=== PATIENT | female | born 1945 | race Caucasian/White ===

== ENCOUNTER 2016-07-29 17:37 | Inpatient (IN) | payer MEDICARE, OTHER ==
[~2016-07-29] VITALS: Ht 167.6 cm; Wt 107.6 kg
--- NOTE | ~2016-07-29 | ECH ---
Transthoracic Echocardiography Report (TTE) Demographics Patient Name WESLEY ADAIR Date of Study 08/01/2016 Patient Number [id number] Visit Number [id number] Date of 1945 Room Number 418 Accession Number [id number] Gender Female Age 71 year(s) Referring Brenna Lowe Transition Teacher Pennie Coelho [facility] Physician Physician Demetris Antonio MD Vice President Industrial Relations Physician [place] Supervising Ordering Physician Brenna Lowe MD/MLP Nurse Stress Home Supervisor Conclusions Contractility Score Summary Normal Left Ventricular contractility was noted. Summary Technically fair exam. The estimated left ventricular ejection fraction is 55-60%. Severe concentric left ventricular hypertrophy. Diastolic assessment reveals Grade I diastolic dysfunction. Bubble study was done, there is no evidence for a PFO or ASD. No significant valvular abnormalities. Recommendation The patient will be given the results of this study by the physician who ordered the exam. Procedure Type of Study TTE procedure:Echo Complete SF. Procedure Date Date: 08/01/2016 Start: 11:44 AM Technical Quality: Fair due to body habitus. Indications:CVA. Appropriate Use Criteria: 9 Contrast Medium: Bubble Study. Height: 66 inches Weight: 235 pounds BSA: 2.14 m Rhythm: Sinus bradycardia HR: 52 bpm BP: 117/53 mmHg M-Mode/2D Measurements LV Diastolic Dimension: 4.33 cm LV Systolic Dimension: 3.16 cm LV Septum Diastolic: 1.69 cm LV PW Diastolic: 1.66 cm AO Root Dimension: 2.51 cm Cardiac Output: 5 l/min LA Dimension: 4.68 cm Cardiac Index: 2.34 l/min*m RV Diastolic Dimension: 3.31 cm LA volume index: 34 ml/m LVOT: 1.99 cm LVOT VTI: 30.93 cm RV Base: 4.1 cm LV Stroke volume: 96.15 ml RV Mid: 2.4 cm LV Stroke volume index: 44.93 ml/m Doppler Measurements AV Peak Velocity: 1.4 m/s MV Peak E-Wave: 1.17 m/s AV Peak Gradient: 7.84 mmHg MV Peak A-Wave: 1.14 m/s AV Mean Gradient: 3.68 mmHg MV E/A Ratio: 1.03 LVOT Peak Velocity: 1.24 m/s MV P1/2t: 73.5 msec AV Area (Continuity):3.53 cm MV Deceleration Time: 248.6 msec MV Area (PHT): 3 cm PV Peak Velocity: 0.72 m/s PV Peak Gradient: 2.04 mmHg RA Area: 15.16 cm Findings Left Ventricle The left ventricle is normal in size . Severe concentric left ventricular hypertrophy. Diastolic assessment reveals Grade I diastolic dysfunction. Right Ventricle Normal right ventricle structure and function. Left Atrium Normal left atrial size. Bubble study was done, there is no evidence for a PFO or ASD. Right Atrium Normal right atrial size. Mitral Valve Mild thickening of the mitral valve leaflets. Mild mitral annular calcification. Trivial mitral regurgitation by color Doppler. Aortic Valve The aortic valve was not well imaged. Tricuspid Valve Normal tricuspid valve structure and function. Pulmonic Valve Normal pulmonic valve structure and function. Pericardial Effusion No evidence of pericardial effusion. Miscellaneous Visualized portions of the aortic root and ascending aorta appear normal in size. Pleural Effusion No evidence of pleural effusion. Contractility Score LV regional wall motion:(0-Non visualized 1-Normal 2-Hypokinesis 3-Akinesis 4-Dyskinesis 5-Aneurysm) Signature
--- NOTE | 2016-07-31 14:30 | HP ---
ADMIT: 07/29/2016 RM/LOC: 418 [facility] MR#: [id number] [address] [address] WESLEY ADAIR [address] [place] [address] History and Physical SEX: F AGE: 71 : 1945 DATE OF SERVICE: CHIEF COMPLAINT: Headache with visual changes. CLINICAL HISTORY: The patient is a 70-year-old, morbidly obese, white female, who is admitted to [place] after being initially seen in our office and then sent for MRI of her head on an urgent basis. The patient has a history of cerebrovascular disease with a CVA in May of 2014 and a second stroke again in June of 2014. Following her second stroke, she was placed on baby aspirin and Plavix and has had no other acute cerebrovascular events until her admission today. The patient noted the onset of a fairly intense left-sided headache approximately 7 days ago on 07/21/2016. She had the onset in the afternoon of a dull headache that progressively got worse, On 07/22/2016, she noted the headache was persisting. She was not having any other focal neurologic symptoms just a persistent left-sided headache. She notes she is a person who usually does not get headaches and has no prior history of migraine or vascular headaches. Over the past weekend, she noted the onset of some visual changes, but she does have history of diabetic retinopathy and has had previous visual changes related to her diabetic retinopathy. She thought that her vision changes were possibly just related to her diabetic retinopathy; however, the visual changes persisted with a persistent visual field defect. She continued to have a headache. They contacted our office earlier in the week, but my schedule was full and they chose to not see any of my partners until they could see me on the afternoon of 07/29/2016. When seen in our office, she was complaining of this persistent headache with obvious visual field deficit. Given her history of cerebrovascular disease and prior stroke, she was sent to [place] for an urgent MRI of the head. MRI of her head done at [place] late on the afternoon of 07/29/2016, showed an acute stroke involving the left temporal and left occipital lobe. In view of this acute CVA and her persistent headache secondary to this stroke, it was felt best to admit for close monitoring of her neurologic status. It should be noted that she has had no other focal symptoms other than the visual field deficit. She has noted no change in balance, no change in coordination, no change in her muscle strength or functional ability of any of her extremities. Her only symptoms of the stroke have been the headache and visual field deficit. PAST MEDICAL HISTORY: RECENT HOSPITALIZATIONS: The patient was last hospitalized here at [place] in June of 2014. Following that admission, we did send her to the IRU for post CVA rehab. She had also been hospitalized in May of 2014 with a mini-stroke. Prior to that, she had been hospitalized in October of 2013 with urinary tract infection and urosepsis. She has had extensive urologic workup and treatment. She has a history of urethral cell bladder CA and has been followed by the Urology group with serial cystoscopies on an outpatient basis. She has also had transurethral resection of her bladder tumor on multiple occasions. Most recently, her cystoscopies have all been coming back negative for any evidence of residual urethral cell cancer. She was initially diagnosed with her bladder cancer in April of 2014. She has also done some intravesical chemotherapy for her ADMIT: 07/29/2016 RM/LOC: 418 [facility] MR#: [id number] [address] [id number] WESLEY ADAIR [address] [place] [address] History and Physical SEX: F AGE: 71 : 1945 bladder CA. Her chronic medical problems are noted to include: 1. COPD. 2. Hypertension. 3. Type 2 diabetes. 4. Hyperlipidemia. 5. Morbid obesity. 6. Generalized degenerative joint disease. 7. Severe lumbar spinal stenosis. 8. Depressive disorder, not otherwise specified. 9. Urethral cell cancer of the bladder. 10.Chronic GERD. 11.Cerebrovascular disease with history of prior strokes in May and June of 2014. She also had a previous mini-stroke in July of 2013. PREVIOUS SURGICAL PROCEDURES: Include an appendectomy, , multiple resections of her bladder tumor and multiple cystoscopies, a previous breast biopsy for benign disease. She also has an I and D of a right gluteal abscess in 2012. Her most recent surgical procedure was a right total knee arthroplasty done in [place] at [facility] by Dr. Obrien approximately a year and a half ago. CURRENT MEDICATIONS: Include: 1. Simvastatin 20 mg daily. 2. Metformin 500 mg b.i.d. 3. Lisinopril 20 mg daily. 4. Pepcid 20 mg at bedtime. 5. Vitamin D 2000 units daily. 6. Duloxetine 60 mg daily. 7. Plavix 75 mg daily. 8. PreserVision 2 caps daily. 9. Percocet 5/325, 1 every 4 hours for her chronic intractable back pain. 10.Toprol-XL 100 mg daily. 11.Hydrochlorothiazide 25 mg daily. 12.ASA 5 grains 1 daily. 13.Norvasc 10 mg daily. 14.Tricor 145 mg daily. 15.Travatan ophthalmic drops 1 drop both eyes at bedtime. 16.Vitamin E 400 mg daily. ALLERGIES: SHE IS SENSITIVE TO DIAL SOAP, ALSO HAS HAD PREVIOUS DIFFICULTY WITH HALLUCINATIONS FROM MORPHINE. FAMILY HISTORY: The patient's father of esophageal and stomach cancer. She notes her mother had Alzheimer dementia. There was a strong family history of diabetes. SOCIAL HISTORY: The patient is retired. She lives with her in their family home. She does not consume alcoholic beverages. She was a former ADMIT: 07/29/2016 RM/LOC: 418 [facility] MR#: [id number] [address] [place] [address] WESLEY ADAIR [address] [place] [address] History and Physical SEX: F AGE: 71 : 1945 smoker. She quit smoking in 2004, has about a 30 to 40-rcom-spyd history of smoking prior to quitting. The patient is quite limited in her functional activities because of her chronic intractable back pain. She has severe lumbar spinal stenosis with neurogenic claudication. REVIEW OF SYSTEMS: CONSTITUTIONAL: Has not felt well for the past week, has been having headaches with some nausea. Some occasional lightheadedness, but has been able to function fairly normally at home, but has been more fatigued and tired. HEENT: She has had new vision changes with some increased blurring of her vision. She also notes that when she looks at something she does not see the entire picture it is like a portion is missing out of the lower central portion of what she is looking at. She describes a significant visual field deficit. She notes no upper respiratory congestion and no nasal or sinus congestion. She denies any swallowing difficulty. No choking or signs of aspiration. PULMONARY: She does get short of breath with activity. History of COPD. She is having no significant sputum production. No hemoptysis. No pleuritic chest pain. CARDIAC: The patient has multiple cardiac risk factors. She does not have any known history of angina or cardiac related chest pain. She does have history of hypertension. Blood pressures have been well controlled. Also, note a history of obstructive sleep apnea. She is not utilizing her CPAP or oxygen at night. GASTROINTESTINAL: She has been having some nausea, has a history of chronic dyspepsia. Her chronic GERD symptoms are well controlled with her current medications. She has been quite constipated for the last 5 days. She has noted no blood in her stools. GENITOURINARY: History of hematuria. History of urethral cell bladder CA status post extended treatment. MUSCULOSKELETAL: Chronic intractable back pain. She is status post right total knee. She also is noted to have significant degenerative arthritis of the left knee and bilateral rotator cuff arthropathy of both shoulders. NEUROLOGIC: She has had some ongoing depression, but feels her medications are working well for that. She has history of the previous strokes on 3 occasions. She is noting no other new focal deficits. PHYSICAL EXAMINATION: VITAL SIGNS: Temp is 99.3, pulse is 64, respirations 14, blood pressure 133/64, and O2 saturation is 97% on room air. GENERAL: The patient is a 70-year-old, white female, who appears older than her stated age. She is in no acute distress. She is oriented to time and place. Memory appears to be intact. ENT: Her ears are clear. Hearing is intact. Pupils are equal reactive. Sclerae nonicteric. Conjunctivae noninflamed. Her extraocular movements are intact, but she notes a central lower visual field defect. Her oropharynx is normal. NECK: Supple. No carotid bruits. Carotid pulses are full and symmetrical. Thyroid not enlarged. ADMIT: 07/29/2016 RM/LOC: 418 [facility] MR#: [id number] [address] [place] [id number] WESLEY ADAIR [address] [place] [address] History and Physical SEX: F AGE: 71 : 1945 LUNGS: Today are noted to be diminished, but otherwise clear. HEART: Regular rhythm. No murmurs. No evidence of failure. ABDOMEN: Quite obese, protuberant, and nondistended. Bowel sounds are normoactive. I cannot appreciate any masses or organomegaly. BREAST AND PELVIC: Not performed at this time. EXTREMITIES: The patient has significant weakness in her legs particularly noted to have hip flexor weakness, has marked difficulty standing from a chair. She has a scar over her right knee from previous right total knee. Advanced degenerative changes of the left knee, changes of chronic venous insufficiency and stasis dermatitis in both lower extremities. INTEGUMENT: No other rashes other than for her stasis dermatitis of her legs. NEUROLOGICAL: I cannot appreciate any focal deficit. She has no meningeal signs. She has no nuchal rigidity. Her balance is poor. She is steady with use of a walker, but due to her lower extremity weakness, she has trouble ambulating without use of a walker. Upper extremity strength is normal and symmetric. Her MRI of the head done prior to admission shows changes of chronic cerebrovascular disease and with deep white matter changes due to small vessel disease in the left temporal and occipital lobes. The patient has findings consistent with an acute ischemic stroke. ASSESSMENT AT THE TIME OF ADMISSION: 1. Acute left temporal and occipital lobe cerebrovascular accident. 2. Cerebrovascular disease. 3. Type 2 diabetes. 4. Hyperlipidemia/hypertriglyceridemia. 5. Hypertension. 6. Chronic obstructive pulmonary disease. 7. Tobacco use disorder in full sustained remission. 8. Chronic gastroesophageal reflux disease. 9. Morbid obesity. 10.Lumbar spinal stenosis. ADMIT: 07/29/2016 RM/LOC: 418 [facility] MR#: [id number] [facility] [address] [address] WESLEY ADAIR [address] [place] [address] History and Physical SEX: F AGE: 71 : 1945 11.Neurogenic claudication. 12.Status post right total knee. 13.Urethral cell carcinoma of the bladder. PLAN: Plan is to admit the patient. Monitor her neurologic status closely. I feel that the stroke is at least 5 to 7 days of age. She is not a candidate for thrombolytic therapy, but do feel we need to monitor her neuro status closely for signs of progression or extension of her stroke and proceed with further post CVA evaluation to include PT, OT, and Speech Therapy. Would also like to get Neurology consult and get their recommendations regarding further management in particular with regard to stroke prevention. We are already attempting to manage her risk factors as best we can. Jaspal Ceja MD/ beck JOB #: [id number] CC: Jaspal Ceja, Attending Physician Jaspal Ceja, Family Physician
[2016-08-19] MEDS ORDERED: ZOCOR DPS20 MG PO (10:23)
[2016-08-19] MEDS ORDERED: PRESERVISION A1 EAC2 PO (10:24)
[2016-08-19] MEDS ORDERED: PLAVIX75 MG PO (10:24)
[2016-08-19] MEDS ORDERED: TOPROL XL50 MG PO (10:24)
[2016-08-19] MEDS ORDERED: NORVASC DPS10 MG PO (10:24)
[2016-08-19] MEDS ORDERED: TRICOR145 MG PO (10:24)
[2016-08-19] MEDS ORDERED: TRAVATAN2.5 ML OU (10:25)
[2016-08-19] MEDS ORDERED: VITAMIN D2000 UNI1 PO (10:25)
[2016-08-19] MEDS ORDERED: MAALOX DPS30 ML PO (10:26)
[2016-08-19] MEDS ORDERED: GLUCOPHAGE850 MG PO (10:26)
[2016-08-19] MEDS ORDERED: ZESTRIL DPS20 MG PO (10:26)
[2016-08-19] MEDS ORDERED: SENOKOT S1 TAB PO (10:26)
[2016-08-19] MEDS ORDERED: TYLENOL DPS325 MG PO (10:27)
[2016-08-19] MEDS ORDERED: CYMBALTA30 MG PO (10:27)
[2016-08-19] MEDS ORDERED: TINACTIN 1% PWD45 GM TP (10:27)
--- NOTE | 2016-09-02 19:22 | DS ---
ADMIT: 07/29/2016 RM/LOC: 418 [facility] MR#: [id number] [address] [address] JACQUELINE ADAIR [address] [place] [address] General Discharge Summary SEX: F AGE: 70 : 1945 ADMISSION DATE: 07/29/2016 DISCHARGE DATE: 08/03/2016 ADMITTING DIAGNOSIS: As per history and physical. FINAL DIAGNOSES: 1. Acute cerebrovascular accident. 2. Cerebrovascular disease. 3. Jeannie-infarct cerebral edema. 4. Post cerebrovascular accident headache. 5. Chronic kidney disease, stage 3. 6. Dysarthria and anarthria secondary to acute cerebrovascular accident. 7. Chronic obstructive pulmonary disease. 8. 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 9. Hypertension. 10.Hyperlipidemia. 11.Generalized osteoarthritis. 12.Constipation. 13.Morbid obesity. 14.Chronic venous insufficiency of the lower extremities. 15.Lumbar spinal stenosis. 16.Major depressive disorder. 17.Chronic gastroesophageal reflux disease/esophageal reflux. 18.Personal history of malignant neoplasm of the bladder. 19.Status post prior right total knee arthroplasty. 20.Tobacco use disorder in full sustained remission. COMPLICATIONS: None. OPERATIONS: None. CLINICAL HISTORY: Jacqueline is a 70-year-old, white female, admitted after being seen at our office complaining of severe headache and vision changes with visual field loss. The patient had been having headaches off and on for the past week with a left temporal headache, which started on 07/21/2016. Visual changes have been noted for the last 5 to 6 days, but have gotten significantly worse in the last 24 to 48 hours. The patient has had a persistent left-sided headache. She does have prior history of CVA in May of 2014. Because of her findings and MRI was done on an urgent basis, MRI showed an acute left temporal occipital lobe CVA. In view of her acute stroke, the patient was admitted for management of her acute stroke and monitoring of her neurologic status. For further details of her clinical history as well as her past medical history and pertinent findings on physical exam, please see dictated history and physical. LABORATORY AND X-RAY SUMMARY FROM THIS ADMISSION: For complete details of lab, please see cumulative laboratory summary included in her chart. Brief synopsis of lab; her initial CBC showed a white count of 8600, hemoglobin 10.2, and hematocrit 33.8. At discharge her white count was 6000, hemoglobin ADMIT: 07/29/2016 RM/LOC: 418 [facility] MR#: [id number] [address] [address] MANA JACQUELINE L [address] [place] [address] General Discharge Summary SEX: F AGE: 70 : 1945 8.5, and hematocrit 28.5. Coag studies on admission showed a protime of 11.4, INR 1.09. Her PTT was 24.5. On admission, her sodium was 142, potassium 4.3, BUN was 36 with a creatinine of 1.8. Blood sugar was 205. At discharge; sodium was 134, potassium 5.0, BUN 69, and creatinine 1.6. Her lipid studies showed a cholesterol of 158. She does have significant hypertriglyceridemia with triglycerides of 498. The patient's serum iron level was normal. Iron binding capacity was elevated. Fingerstick blood sugars were monitored q.i.d. throughout the hospitalization. Her blood sugars ranged from a low of 147 to a high of 218 during this hospitalization. The patient's B12 level was noted to be normal. Her folate level is normal. Serum ferritin was low normal at 23. Haptoglobin was normal at 148. Hemoglobin A1c is elevated at 8.4, consistent with poor diabetic control. Her TSH was normal at 1.85. Her serum proteins were normal with normal protein electrophoresis. A CTA of her head and neck was obtained that showed tortuous internal carotid arteries. She had some degree of atherosclerotic disease of both carotids, but no significant stenosis or obstruction. A CT of her head was obtained on 07/31/2016, because of persistent headache and worsening of her dysarthria. This showed an evolving infarct on the left with no significant change from her recent MRI. MRI of her brain done on admission showed changes of small vessel disease, and atherosclerotic change. She was found to have a left temporal and occipital lobe infarct consistent with an acute CVA. Echocardiogram showed an EF of 55% to 60%, concentric LVH, diastolic dysfunction, no evidence for a PFO or an ASD, no significant valvulopathy. Her EKGs showed a normal sinus rhythm with sinus bradycardia, no significant ST-T wave changes. HOSPITAL COURSE: The patient was admitted with what was felt to be an acute stroke. She was placed on the inpatient stroke protocol. Because of the duration of symptoms, she was not felt to be a candidate for any type of thrombolytic therapy. We managed her diabetes with sliding scale insulin, managed her blood pressure with her usual home blood pressure medication. We did have her seen by PT, OT, and speech therapy. The patient's initial symptoms worsened with worsening of her dysarthria and worsening of her confusion. This was felt to be related to jeannie-stroke cerebral edema, and for that reason, she was started on IV Decadron, which was then tapered. She continued to have a severe headache over the first several days of her admission. Her neurologic status stabilized, but she continued to have ongoing confusion and dysarthria. We ultimately discontinued her IV Decadron and switched her to oral Decadron. We did have some acute renal insufficiency superimposed on her chronic kidney disease, thought to be related to her CT scan dye for her CT arteriogram, and we did take her off metformin briefly during this hospitalization. She was also noted to have significant anemia. An evaluation of this was undertaken as well. Ultimately, she was transferred to the inpatient rehab unit for continued stroke rehab, transferred on 08/03/2016. DISCHARGE MEDICATIONS: At discharge, her medications were to include. 1. ASA 325 mg daily. 2. Cymbalta 60 mg daily. ADMIT: 07/29/2016 RM/LOC: 418 [facility] MR#: [id number] [id number] [address] [facility] [address] [place] [phone] JACQUELINE ADAIR [address] [place] [address] General Discharge Summary SEX: F AGE: 70 : 1945 3. Decadron 4 mg b.i.d. to be tapered over the next 2 weeks. 4. Hydrochlorothiazide 25 mg daily. 5. Neurontin 200 mg t.i.d. 6. Norvasc 10 mg daily. 7. Pepcid 20 mg at bedtime. 8. Plavix 75 mg daily. 9. PreserVision 1 daily. 10.Toprol-XL 100 mg daily. 11.Tricor 145 mg daily. 12.Vitamin D 2000 units daily. 13.Vitamin E 400 units daily. 14.Zestril 20 mg b.i.d. 15.Zocor 20 mg at bedtime. 16.Xalatan ophthalmic drops 1 drop both eyes at bedtime. 17.NovoLog via sliding scale prior to each meal. 18.Colace 100 mg b.i.d. p.r.n. constipation. 19.Glutose 75 g p.r.n. signs or symptoms of hypoglycemia. 20.Percocet 1 tablet every 4 hours p.r.n. severe back pain. 21.Tylenol p.r.n. minor discomfort. 22.Glucagon 1 mg IM p.r.n. severe hypoglycemia. 23.Dulcolax suppository p.r.n. constipation. Her metformin was still on hold at the time of discharge due to her elevated creatinine. She was to continue on a diabetic diet. She is to have lab work at the [facility] on 08/09/2016, to include a CBC and a BMP. She is to have stools hematested x3. I will see her for followup while she is at the IRU and monitor along as she goes through her post CVA rehab. CONDITION AT DISCHARGE: Improved. LONG-TERM PROGNOSIS: Poor in view of her cerebrovascular disease and that this is her second significant CVA. Jaspal Ceja MD/ beck JOB #: [id number] CC: Jaspal Ceja MD, Attending Physician Jaspal Ceja MD, Family Physician
[2016-09-17] MEDS ORDERED: CYMBALTA30 MG PO (12:06)
[2016-09-17] MEDS ORDERED: HYDROCHLOROTHIA25 MG PO (12:07)
[2016-09-17] MEDS ORDERED: NORVASC DPS10 MG PO (12:07)
[2016-09-17] MEDS ORDERED: TOPROL XL DPS50 MG PO (12:07)
[2016-09-17] MEDS ORDERED: ZESTRIL DPS20 MG PO (12:08)
[2016-09-17] MEDS ORDERED: TRICOR145 MG PO (12:08)
[2016-09-17] MEDS ORDERED: VITAMIN D-32000 UNI1 PO (12:08)
[2016-09-17] MEDS ORDERED: PLAVIX75 MG PO (12:09)
[2016-09-17] MEDS ORDERED: CARAFATE DPS1 GM PO (12:09)
[2016-09-17] MEDS ORDERED: XALATAN2.5 ML OU (12:09)
[2016-09-17] MEDS ORDERED: ZOCOR DPS20 MG PO (12:09)
[2016-09-17] MEDS ORDERED: MAALOX DPS30 ML PO (12:10)
[2016-09-17] MEDS ORDERED: COLESTID1 GM PO (12:10)
[2016-09-17] MEDS ORDERED: PROTONIX40 MG PO (12:10)
[2016-09-17] MEDS ORDERED: TYLENOL DPS325 MG PO (12:10)
[2016-09-17] MEDS ORDERED: JANUVIA100 MG PO (12:11)
== END 2016-08-03 11:27 | disposition short-term general hospital (02) | DRG 64 ==
LOC: RAD.S 17:37 → 4PCU 18:55
PROVIDERS: ADMIT Family Medicine
DX: I63.9 Cerebral infarction, unspecified (principal); G93.6 Cerebral edema; N17.9 Acute kidney failure, unspecified; R47.1 Dysarthria and anarthria; J44.9 Chronic obstructive pulmonary disease, unspecified; E11.319 Type 2 diabetes mellitus with unspecified diabetic retinopathy without macular edema; I10 Essential (primary) hypertension; E78.5 Hyperlipidemia, unspecified; M15.9 Polyosteoarthritis, unspecified; K59.00 Constipation, unspecified; E66.9 Obesity, unspecified; Z68.38 Body mass index [BMI] 38.0-38.9, adult; I87.2 Venous insufficiency (chronic) (peripheral); M48.06 Spinal stenosis, lumbar region; E78.1 Pure hyperglyceridemia; F32.9 Major depressive disorder, single episode, unspecified; K21.9 Gastro-esophageal reflux disease without esophagitis; Z86.73 Personal history of transient ischemic attack (TIA), and cerebral infarction without residual deficits; Z79.82 Long term (current) use of aspirin; Z85.51 Personal history of malignant neoplasm of bladder; Z96.651 Presence of right artificial knee joint; Z79.84 Long term (current) use of oral hypoglycemic drugs; Z87.891 Personal history of nicotine dependence

== ENCOUNTER 2016-08-03 10:46 | Inpatient (IN) | payer MEDICARE, OTHER ==
[~2016-08-03] VITALS: Ht 167.6 cm; Wt 104.8 kg
[2016-08-19] MEDS ORDERED: ZOCOR DPS20 MG PO (10:23)
[2016-08-19] MEDS ORDERED: TRICOR145 MG PO (10:24)
[2016-08-19] MEDS ORDERED: PLAVIX75 MG PO (10:24)
[2016-08-19] MEDS ORDERED: PRESERVISION A1 EAC2 PO (10:24)
[2016-08-19] MEDS ORDERED: NORVASC DPS10 MG PO (10:24)
[2016-08-19] MEDS ORDERED: TOPROL XL50 MG PO (10:24)
[2016-08-19] MEDS ORDERED: TRAVATAN2.5 ML OU (10:25)
[2016-08-19] MEDS ORDERED: VITAMIN D2000 UNI1 PO (10:25)
[2016-08-19] MEDS ORDERED: ZESTRIL DPS20 MG PO (10:26)
[2016-08-19] MEDS ORDERED: GLUCOPHAGE850 MG PO (10:26)
[2016-08-19] MEDS ORDERED: MAALOX DPS30 ML PO (10:26)
[2016-08-19] MEDS ORDERED: SENOKOT S1 TAB PO (10:26)
[2016-08-19] MEDS ORDERED: CYMBALTA30 MG PO (10:27)
[2016-08-19] MEDS ORDERED: TINACTIN 1% PWD45 GM TP (10:27)
[2016-08-19] MEDS ORDERED: TYLENOL DPS325 MG PO (10:27)
[2016-09-17] MEDS ORDERED: CYMBALTA30 MG PO (12:06)
[2016-09-17] MEDS ORDERED: HYDROCHLOROTHIA25 MG PO (12:07)
[2016-09-17] MEDS ORDERED: NORVASC DPS10 MG PO (12:07)
[2016-09-17] MEDS ORDERED: TOPROL XL DPS50 MG PO (12:07)
[2016-09-17] MEDS ORDERED: TRICOR145 MG PO (12:08)
[2016-09-17] MEDS ORDERED: VITAMIN D-32000 UNI1 PO (12:08)
[2016-09-17] MEDS ORDERED: ZESTRIL DPS20 MG PO (12:08)
[2016-09-17] MEDS ORDERED: XALATAN2.5 ML OU (12:09)
[2016-09-17] MEDS ORDERED: PLAVIX75 MG PO (12:09)
[2016-09-17] MEDS ORDERED: CARAFATE DPS1 GM PO (12:09)
[2016-09-17] MEDS ORDERED: ZOCOR DPS20 MG PO (12:09)
[2016-09-17] MEDS ORDERED: PROTONIX40 MG PO (12:10)
[2016-09-17] MEDS ORDERED: TYLENOL DPS325 MG PO (12:10)
[2016-09-17] MEDS ORDERED: COLESTID1 GM PO (12:10)
[2016-09-17] MEDS ORDERED: MAALOX DPS30 ML PO (12:10)
[2016-09-17] MEDS ORDERED: JANUVIA100 MG PO (12:11)
--- NOTE | 2016-09-22 14:45 | DS ---
ADMIT: 08/03/2016 RM/LOC: [facility] MR#: [id number] [facility]#: [id number] [facility] [address] [place] [id number] WESLEY ADAIR [address] [place] [address] General Discharge Summary SEX: F AGE: 71 : 1945 ADMISSION DATE: 08/03/2016 DISCHARGE DATE: 08/18/2016 DISCHARGE DIAGNOSES: Stroke 01.2, right body involvement, left brain, I63.9, cerebral infarction unspecified, onset 07/29/2016, comorbid conditions per initial H and P. Other diagnoses per hospital course below. HOSPITAL COURSE: Please see my initial H and P for details prior to transfer to the IRU. In brief, the diagnosis specifically was acute infarct left temporal and occipital lobes with right homonymous hemianopsia, right neglect, dizziness, incoordination, imbalance, muscle weakness, and difficulty in self- care and walking in addition to cognitive problems. Pain and bowel regimen were adjusted. Dietitian followed to optimize nutrition. Pharmacy followed to optimize medication management. Sliding scale insulin was ordered. Aspirin discontinued. Neurontin discontinued. Pepcid changed to daily. Vitamin E discontinued. Polypharmacy addressed. Toprol-XL decreased. Zocor changed to daily for hyperlipidemia. Colace discontinued. Percocet switched to OxyIR. Senokot-S for constipation. Levemir for diabetes. Lab monitored regularly. Lovenox started for DVT prophylaxis. Regular diet. Thin liquids per Speech. Levemir increased for diabetes. Metformin started for diabetes. K-Phos Neutral for hypophosphatemia. Levemir discontinued. Cymbalta decreased to 30 mg. Metformin increased to 850 mg. NovoLog changed to very low dose sliding scale insulin. OxyIR discontinued, no longer necessary. Vitamin D deficiency replaced with vitamin D. Tinactin powder for intertrigo. Lovenox discontinued as the patient was ambulatory enough to prevent DVT and was on Plavix. Metformin decreased to 500 mg as blood sugars were pretty well controlled. P.o. fluid encouraged. HydroDIURIL decreased for some azotemia. Tinactin changed to p.r.n. Hydrochlorothiazide discontinued. Accu-Cheks insulin changed to home routine. Blood sugars discontinued. Accu-Cheks discontinued. Sliding scale insulin discontinued per her home routine. Toprol-XL decreased to 25 mg. Pepcid discontinued. Glucose and glucagon discontinued. Slow-Mag for hypomagnesemia. Metformin increased back to 850 ADMIT: 08/03/2016 RM/LOC: [facility] MR#: [id number] [address] [id number] WESLEY ADAIR Chrissy [address] [place] [address] General Discharge Summary SEX: F AGE: 71 : 1945 mg. Accu-Cheks and low-dose sliding scale insulin started at the end of her course just to help control that better prior to discharge. Toprol-XL increased to 50 mg at bedtime. The patient was medically stable at time of discharge. Please see IRU interdisciplinary discharge summary for details regarding her progress in therapy. DISCHARGE DISPOSITION: Home with . Outpatient therapy. Had all equipment needed for home. DISCHARGE MEDICATIONS: Please see discharge med rec. FOLLOWUP: Dr. Ceja on August 26. Thong Rosado MD/ beck JOB #: [id number] CC:
== END 2016-08-18 11:25 | disposition home or self-care (01) | DRG 57 ==
LOC: 6IRU 11:33
PROVIDERS: ADMIT Physical Medicine & Rehabilitation
PROC: F07Z9YZ Gait Training/Functional Ambulation Treatment using Other Equipment (ICD-10-PCS; principal; 2016-08-03)
PROC: F06Z3ZZ Aphasia Treatment (ICD-10-PCS; principal; 2016-08-03)
DX: I69.398 Other sequelae of cerebral infarction (principal); N17.9 Acute kidney failure, unspecified; D69.6 Thrombocytopenia, unspecified; J44.9 Chronic obstructive pulmonary disease, unspecified; E66.01 Morbid (severe) obesity due to excess calories; E83.42 Hypomagnesemia; E11.65 Type 2 diabetes mellitus with hyperglycemia; I69.311 Memory deficit following cerebral infarction; I69.315 Cognitive social or emotional deficit following cerebral infarction; I69.320 Aphasia following cerebral infarction; I69.318 Other symptoms and signs involving cognitive functions following cerebral infarction; H53.461 Homonymous bilateral field defects, right side; R26.89 Other abnormalities of gait and mobility; R27.8 Other lack of coordination; D64.9 Anemia, unspecified; M54.5 Low back pain; G89.29 Other chronic pain; I10 Essential (primary) hypertension; E55.9 Vitamin D deficiency, unspecified; M15.9 Polyosteoarthritis, unspecified; K21.9 Gastro-esophageal reflux disease without esophagitis; M48.06 Spinal stenosis, lumbar region; M62.81 Muscle weakness (generalized); R42 Dizziness and giddiness; E78.5 Hyperlipidemia, unspecified; Z79.84 Long term (current) use of oral hypoglycemic drugs; Z68.38 Body mass index [BMI] 38.0-38.9, adult; Z79.82 Long term (current) use of aspirin